=== PATIENT | male | born 1960 | race Caucasian/White ===

== ENCOUNTER 2016-09-05 06:04 | Day surgery (SDC) | payer BC, OTHER ==
--- NOTE | 2016-09-04 15:57 | SSS ---
CHIEF COMPLAINT: History of colon polyps and family history of colon cancer in his father. HISTORY OF PRESENT ILLNESS: Mr. Turpin is a 56 year-old male who presented to my office for routine followup. It was noted that he was due for a colonoscopy. His father had colon cancer from which he at age 57. Mr. Turpin himself has a history of colon polyps. He had a colonoscopy in 2008 and again in 2012. Small adenomas were removed at both of these colonoscopies. He has no symptoms referable to his bowels, specifically no abdominal pain, blood in his stool or changes in his bowel habits. PAST MEDICAL HISTORY: 1. Hypertension diagnosed in 2010. Echocardiogram in 2011 that showed ejection fraction of 66% with moderate left ventricular hypertrophy and mild mitral regurgitation. 2. Family history of colon cancer. 3. Multiple episodes of pneumonia as a child for which he was hospitalized on 2 separate occasions. PAST SURGICAL HISTORY: 1. Colonoscopies as above. 2. Tonsillectomy at age 10. CURRENT MEDICATIONS: 1. Bystolic 5 mg a day. FAMILY HISTORY: Father at 57 from colon cancer. He also had coronary artery disease having had a bypass at age 42. He also had lupus and history of throat cancer, tobacco abuse and alcohol use. Mother had a history of digestive issues. She had a cholecystectomy and hysterectomy with a bowel obstruction complication. He has 2 sisters, Kerry and Yaz, both healthy. He has 3 daughters, Paulette, Natalie and Miryam. He has 2 paternal aunts, one had pancreatic cancer and the other had dementia. He has a paternal uncle with leukemia. SOCIAL HISTORY: He used to work at [employer]. He is with 3 children. He has never smoked. Alcohol use is rare. PHYSICAL EXAMINATION: VITAL SIGNS: Blood pressure 124/72, weight 240 pounds, height 6 feet, pulse 60. GENERAL: He is awake and alert, and in no acute distress. HEENT: Unremarkable. NECK: Supple. CHEST: Lungs are clear. CARDIOVASCULAR: Regular rate and rhythm without appreciable murmurs. ABDOMEN: Soft, non-tender. EXTREMITIES: Without edema. NEUROLOGIC: Nonfocal. RECTAL: Exam is deferred until the time of colonoscopy. ASSESSMENT: 1. Family history of colon cancer. 2. Personal history of colon polyps. PLAN: Colonoscopy on 09/05/16. #[id number] [facility]
[2016-09-05] MEDS ORDERED: LACTATED RINGERS 1,000 ML ONE (06:48)
[2016-09-05] MEDS ORDERED: MIDAZOLAM INJ 5 MG/5 ML VIAL ONE (07:21)
[2016-09-05] MEDS ORDERED: fentaNYL CITRATE INJ 50 MCG/ML AMP ONE (07:21)
--- NOTE | 2016-09-05 08:30 | OP ---
DATE OF PROCEDURE: 09/05/16 PREOPERATIVE DIAGNOSIS: 1. Family history of colon cancer. 2. History of colonic polyps. POSTOPERATIVE DIAGNOSIS: 1. 0.25 by 0.25 cm proximal ascending colon polyp, biopsied times 3 to presumed obliteration. 2. 0.75 by 0.75 cm hepatic flexure polyp, removed by snare, but no retrieved. 3. 0.25 by 0.25 cm transverse colon polyp, biopsied times 2 to obliteration. 4. 0.25 by 0.25 cm rectal polyp, biopsied times 2 to obliteration. 5. Otherwise normal colonoscopy to the cecum. PROCEDURE: 1. Colonoscopy. SURGEON: Pablo Ward MD. ESTIMATED BLOOD LOSS: Less than 1 mL. COMPLICATIONS: No immediate complications. ANESTHESIA: Fentanyl 1 mL, Versed 1 mg, Propofol 300 mg administered intravenously by Rick Lofton CRNA, using monitored anesthesia care. TECHNIQUE: After informed consent was obtained from the patient, the patient was taken to the Endoscopy Suite and placed in the left lateral decubitus position. Vital signs were monitored throughout the procedure. Supplemental oxygen was administered throughout the procedure. After adequate conscious sedation was obtained, digital rectal examination was performed, which showed a minimally enlarged prostate without suspicious nodules. The colonoscope was then advanced into the patient's rectum and at that point, a small polyp was immediately noted and was biopsied times 2 to obliteration. The colonoscope was advanced further through the sigmoid, descending, and transverse colon. In the transverse colon, there was a 0.25 by 0.25 cm polyp noted and biopsied times 2 to obliteration. The scope was then advanced a bit more and because it was at the hepatic flexure in a looping spot that was difficult to get to easily , the decision was made to go ahead and remove a larger polyp that was noted here by snare. This polyp measured approximately 0.75 by 0.75 cm. It was photographed before and after removal. Unfortunately, it was not retrieved. It was removed, however. The colonoscope was then advanced all the way to the cecum. A very small polyp was noted in the proximal ascending colon and was removed at that point. The terminal ileum could not be entered, but was identified. The overall bowel prep was noted to be quite good. The colonoscope was then slowly withdrawn from the entire colon, taking great care to try to visualize all higgins of the colon in 360 degree fashion. No other polyps were noted on removal of the scope. The scope was retroflexed in the rectum and no significant polyps were noted here. The colonoscope was then unretroflexed and air was suctioned out of the patient's rectum. The colonoscope was removed from the patient. PLAN: The patient will followup in my office in 7 to 10 days to review the pathology. We will likely repeat his colonoscopy in about 3 years given his family history of colon cancer. #[id number] [facility]rak[facility]
[2016-09-05 08:56] VITALS: BP 117/78; TEMP 97.7; O2SAT 97
[2016-09-05] MEDS ORDERED: LIDOCAINE 1% 10 ML VIAL INJ ONE (12:00)
[2016-09-05] MEDS ORDERED: PROPOFOL 200 MG/20 ML VIAL IV ONE (12:00)
== END 2016-09-05 08:55 | disposition home or self-care (01) ==
LOC: AMB 06:04
PROVIDERS: ATTEND Family Medicine
DX: Z12.11 Encounter for screening for malignant neoplasm of colon (principal); D12.7 Benign neoplasm of rectosigmoid junction; D12.2 Benign neoplasm of ascending colon; D12.3 Benign neoplasm of transverse colon; I10 Essential (primary) hypertension; Z86.010 Personal history of colon polyps; Z80.0 Family history of malignant neoplasm of digestive organs; Z79.899 Other long term (current) drug therapy
CPT/HCPCS: 00810; 45380; 45385; J2250; J3010; J3490; J7120

== ENCOUNTER → 2017-07-03 | Outpatient (CLI) | payer BC | END | disposition home or self-care (01) | LOC: GMAL 11:50 | PROVIDERS: ATTEND Family Medicine | DX: Z00.00 Encounter for general adult medical examination without abnormal findings (principal) ==

== ENCOUNTER → 2017-10-02 | Outpatient (CLI) | payer BC | LOC: GMAL 10:20 | PROVIDERS: ATTEND Family Medicine | DX: E55.9 Vitamin D deficiency, unspecified (principal) ==

== ENCOUNTER → 2018-04-02 | Outpatient (CLI) | payer BC | LOC: GMAL 11:50 | PROVIDERS: ATTEND Family Medicine | DX: E55.9 Vitamin D deficiency, unspecified (principal) ==

== ENCOUNTER 2019-08-12 05:20 | Day surgery (SDC) | payer BC ==
[2019-08-12] MEDS ORDERED: LACTATED RINGERS 1,000 ML ONE (06:47)
[2019-08-12] MEDS ORDERED: fentaNYL CITRATE INJ 50 MCG/ML AMP ONE (07:22)
[2019-08-12] MEDS ORDERED: MIDAZOLAM INJ 2 MG/2 ML VIAL ONE (07:22)
[2019-08-12 09:41] VITALS: BP 125/45; TEMP 97.4; O2SAT 96
[2019-08-12] MEDS ORDERED: LIDOCAINE 1% 10 ML VIAL INJ ONE (10:00)
[2019-08-12] MEDS ORDERED: GLYCOPYRROLATE 0.2 MG/ML VIAL IV ONE (10:00)
[2019-08-12] MEDS ORDERED: PROPOFOL 200 MG/20 ML VIAL IV ONE (10:00)
--- NOTE | 2019-08-12 10:15 | OP ---
DATE OF PROCEDURE: 08/12/19 PREOPERATIVE DIAGNOSIS: 1. History of colonic polyps. 2. Family history of colon cancer in his parent. POSTOPERATIVE DIAGNOSIS: 1. 0.5 by 0.5 cm proximal descending colon polyp, biopsied times 4 to obliteration. 2. 0.5 by 0.5 cm inverted diverticulum versus polyp, biopsied times 2, not to obliteration. 3. Rare left sided diverticula. PROCEDURE: 1. Colonoscopy. SURGEON: Pablo Ward MD. ESTIMATED BLOOD LOSS: Less than 1 mL. COMPLICATIONS: No immediate complications. ANESTHESIA: Propofol 400 mg, fentanyl 50 mcg and Versed 2 mg all administered intravenously by Rick Lofton CRNA. TECHNIQUE: After informed consent was obtained from the patient, the patient was taken to the Endoscopy Suite and placed in the left lateral decubitus position. Vital signs were monitored throughout the procedure. Supplemental oxygen was administered throughout the procedure. Digital rectal examination showed that I could only feel the bottom quarter of the prostate, but that small portion I did feel felt normal. The colonoscope was then advanced into the patient's rectum and up through the sigmoid, descending, transverse and ascending colon to the level of the cecum. Some looping was experienced around the hepatic flexure. The cecum was ultimately seen and seen well. The terminal ileum could not be entered, but was seen easily. The colonoscope was then slowly withdrawn taking great care to try to visualize all higgins of the colon in 360 degree fashion. The overall bowel prep was quite good though the cecum and ascending colon did have a little bit of feces present. Great effort was made to try to suction out as much of this as possible. Again, overall, it was a very good prep. The colonoscope was slowly withdrawn. The aforementioned polyps in the postoperative diagnosis were noted. The first one in the proximal descending colon was biopsied times 4 to obliteration. Probably in the mid to lower descending colon, there was either an inverted diverticulum or a polyp noted there. Two biopsies were taken of the edge of this. Hemostasis was noted. The scope was retroflexed upon itself in the rectum and no significant abnormalities were noted there. The colonoscope was then unretroflexed and air was suctioned out of the patient's rectum. The patient tolerated the procedure well and was taken back to the recovery area in good condition. PLAN: Followup in my office in 7 to 10 days. We will review the path report and repeat his colonoscopy in 3 to 5 years pending the path report. [facility][id number] [facility]
== END 2019-08-12 09:38 | disposition home or self-care (01) ==
LOC: AMB 05:20
PROVIDERS: ATTEND Family Medicine
DX: Z12.11 Encounter for screening for malignant neoplasm of colon (principal); D12.4 Benign neoplasm of descending colon; K57.30 Diverticulosis of large intestine without perforation or abscess without bleeding; I10 Essential (primary) hypertension; Z86.010 Personal history of colon polyps; Z80.0 Family history of malignant neoplasm of digestive organs; Z88.8 Allergy status to other drugs, medicaments and biological substances; Z79.899 Other long term (current) drug therapy
CPT/HCPCS: 00812; 45380; J2250; J3010; J3490; J7120